=== PATIENT | female | born 1995 | race American Indian/Alaskan Native ===

== ENCOUNTER 2017-08-24 06:17 | Day surgery (SDC) | payer BC ==
[2017-08-24] MEDS ORDERED: NACL BACTERIOSTATIC INFILTRATI ONE (07:56)
--- NOTE | 2017-08-24 08:24 | Anesthesia Consultation ---
Anesthesia Consult and Med Hx Date of service: 08/24/17 - Airway Anesthetic Teeth Evaluation: Good ROM Head & Neck: Adequate Mental/Hyoid Distance: Adequate Mallampati Class: Class III Intubation Access Assessment: Good - Pulmonary Exam CTA: Yes - Cardiac Exam Cardiac Exam: RRR - Pre-Operative Health Status ASA Pre-Surgery Classification: ASA2 Proposed Anesthetic Plan: General - Pulmonary Hx Smoking: No Hx Asthma: No Hx Respiratory Symptoms: No SOB: No COPD: No Home Oxygen Therapy: No Hx Pneumonia: No Hx Sleep Apnea: No - Cardiovascular System Hx Hypertension: No Hx Coronary Artery Disease: No Hx Heart Attack/AMI: No Hx Angina: No Hx Percutaneous Transluminal Coronary Angioplasty (PTCA): No Hx Cardia Arrhythmia: No Hx Internal Defibrillator: No Hx Valvular Heart Disease: No Hx Peripheral Vascular Disease: No - Central Nervous System Hx Neuromuscular Disorder: No Hx Seizures: No CVA: No Hx Back Pain: Yes Hx Psychiatric Problems: No - Gastrointestinal Hx Ulcer: No Hx Gastroesophageal Reflux Disease: No (obesity) - Other Systems Hx Alcohol Use: No Hx Substance Use: No Hx Cancer: No
[2017-08-24] MEDS ORDERED: DILAUDID IV PRN ×2 (08:27→13:41)
[2017-08-24] MEDS ORDERED: ANCEF/STERILE WATER 2 GM/20 ML IV NR (09:00)
[2017-08-24] MEDS ORDERED: LACTATED RINGERS 1,000 ML IV SCH (09:00)
[2017-08-24] MEDS ORDERED: DIPRIVAN 10 MG/ML IV ONE (09:21)
--- NOTE | 2017-08-24 09:28 | Anesthesia Day of Surgery ---
Anesthesia Day of Surgery - Day of Surgery Patient Examined: Yes Patient H&P Reviewed: Yes Patient is NPO: Yes Beta Blockers: No Cardiac Clearance: No Pulmonary Clearance: No ([id number])
[2017-08-24] MEDS ORDERED: DILAUDID ONE ×3 (09:58→12:57)
[2017-08-24] MEDS ORDERED: NACL 0.9% IR ONE (10:38)
[2017-08-24] MEDS ORDERED: ZOFRAN ONE (11:19)
[2017-08-24] MEDS ORDERED: DECADRON ONE (11:19)
[2017-08-24] MEDS ORDERED: XYLOCAINE MPF 2% ONE (11:19)
[2017-08-24] MEDS ORDERED: NACL 0.9% 1000 ML 1,000 ML ONE (11:22)
[2017-08-24] MEDS ORDERED: VERSED ONE (12:46)
[2017-08-24] MEDS ORDERED: TORADOL ONE (13:38)
--- NOTE | 2017-08-24 13:39 | Anesthesia Day of Surgery ---
Anesthesia Day of Surgery - Day of Surgery Patient H&P Reviewed: Yes Patient is NPO: Yes Beta Blockers: Yes Cardiac Clearance: No Pulmonary Clearance: No
--- NOTE | 2017-08-24 13:40 | Post Anesthesia Evaluation ---
- Post Anesthesia Evaluation Patient Participated: Yes Airway Patent: Yes Stable Respiratory Function: Yes Nausea/Vomiting: No Temp > 96.8F: No Pain Manageable: No Adequeate Hydration: No Anesthesia Complications: No Block Receding Appropriately: Not Applicable Patient on Ventilator: No
[2017-08-24] MEDS ORDERED: ZOFRAN IV PRN (13:41)
[2017-08-24] MEDS ORDERED: TORADOL IV PRN (13:41)
--- NOTE | 2017-08-24 14:40 | Operative Report ---
SERVICE: Plastic surgery. PREOPERATIVE DIAGNOSIS: Macromastia. POSTOPERATIVE DIAGNOSIS: Macromastia. PROCEDURE: Bilateral reduction mammoplasty. SURGEON: Rob Wu MD BOWLING BALL GRADER: Toni Dalal CSA. FINDINGS: 740 gm removed from the right breast, 720 gm removed from the left breast. DESCRIPTION OF PROCEDURE: The patient was brought to the operating room and placed on the table in supine position. Following administration of general anesthesia, bilateral breasts were prepped with Betadine solution and draped in the usual sterile manner. A #10 blade scalpel was used to make a circumareolar skin incision, followed by de-epithelization of inferior dermal pedicle. Modified Garcia pattern skin markings were incised with scalpel, deepened through subcutaneous fat and breast tissue using electrocautery. Skin flaps were raised in standard manner as was fashioning of an inferior central mound pedicle. Breast tissue was resected and sent to pathology as specimen. Hemostasis controlled using electrocautery. Skin closure was performed over 10 mm SHEA drains using interrupted and running subcuticular 2-0 Monocryl sutures. Mastisol, Steri-Strips, and sterile dressings applied. The patient tolerated the procedure well and returned to recovery in stable condition. JOB# [id number] FTW/JORDEN
[2017-08-24 17:08] VITALS: BP 109/80
== END 2017-08-24 15:19 | disposition home or self-care (01) ==
LOC: OR 06:17
PROVIDERS: ATTEND Plastic Surgery
DX: N62 Hypertrophy of breast (principal); N60.32 Fibrosclerosis of left breast; N60.31 Fibrosclerosis of right breast; E66.9 Obesity, unspecified; Z68.38 Body mass index [BMI] 38.0-38.9, adult
CPT/HCPCS: 19318; 81025; 88305; J0690; J1100; J1170; J1885; J2250; J2405; J2704; J7030; J7120

== ENCOUNTER 2021-08-14 07:37 | Day surgery (SDC) | payer BC, MEDICAID ==
[~2021-08-14 07:37] MED LIST: ACETAMINOPHEN 500 MG TAB PO SCH; LACTATED RINGERS 1,000 ML IV SCH; MIDAZOLAM 2 MG/2 ML INJ IV NR; SCOPOLAMINE TRANSDERMAL PATCH 72 HR TD NR
[2021-08-14] MEDS ORDERED: ceFAZolin/Water 2 GM/20 ML 2 GM/20 ML SYRINGE IV NR (08:00)
[2021-08-14] MEDS ORDERED: BACTERIOSTATIC SODIUM CHLORIDE 0.9% 30 ML VIAL INFILTRATI ONE (08:03)
--- NOTE | 2021-08-14 08:32 | Anesthesia Day of Surgery ---
Anesthesia Day of Surgery - Day of Surgery Patient Examined: Yes Patient H&P Reviewed: Yes Patient is NPO: Yes
--- NOTE | 2021-08-14 08:32 | Anesthesia Consultation ---
Anesthesia Consult and Med Hx Date of service: 08/14/21 - Airway Anesthetic Teeth Evaluation: Good, Partials Mental/Hyoid Distance: Adequate Mallampati Class: Class II Intubation Access Assessment: Probably Good - Pre-Operative Health Status ASA Pre-Surgery Classification: ASA2 Proposed Anesthetic Plan: General - Pulmonary Hx Smoking: No Hx Asthma: No Hx Respiratory Symptoms: No SOB: No COPD: No Hx Pneumonia: No Hx Sleep Apnea: No (YOLANDE PRE SCREEN LOW RISK) - Cardiovascular System Hx Hypertension: No Hx Coronary Artery Disease: No Hx Heart Attack/AMI: No Hx Angina: No Hx Percutaneous Transluminal Coronary Angioplasty (PTCA): No Hx Cardia Arrhythmia: No Hx Internal Defibrillator: No Hx Valvular Heart Disease: No Hx Peripheral Vascular Disease: No - Central Nervous System Hx Neuromuscular Disorder: No Hx Seizures: No CVA: No Hx Back Pain: Yes Hx Psychiatric Problems: No - Gastrointestinal Hx Ulcer: No Hx Gastroesophageal Reflux Disease: No - Endocrine Hx Renal Disease: Yes (kidney stones) Hx Non-Insulin Dependent Diabetes: Yes (pre-diabetes, diet controlled) - Hematic Hx Anemia: Yes - Other Systems Hx Alcohol Use: No Hx Substance Use: No Hx Cancer: No
[2021-08-14] MEDS ORDERED: FAMOTIDINE 20 MG/2 ML INJ IV NR (08:33)
[2021-08-14] MEDS ORDERED: HYDROmorphone 1 MG/1 ML INJ ONE (08:35)
[2021-08-14] MEDS ORDERED: LIDOCAINE MPF (2%) 20 MG/1 ML VIAL 5 ML ONE (08:36)
[2021-08-14] MEDS ORDERED: propofoL 200 MG/20 ML VIAL IV ONE (08:36)
[2021-08-14] MEDS ORDERED: HYDROcodone/ACETAMINOPHEN 5-325 MG TAB PO PRN (08:46)
[2021-08-14] MEDS ORDERED: HYDROmorphone 1 MG/1 ML INJ IV PRN (09:00)
[2021-08-14] MEDS ORDERED: dexAMETHasone 20 MG/5 ML VIAL ONE (09:21)
[2021-08-14] MEDS ORDERED: ONDANSETRON 4 MG/2 ML INJ ONE (09:44)
[2021-08-14] MEDS ORDERED: KETOROLAC 30 MG/1 ML INJ ONE (09:44)
[2021-08-14] MEDS ORDERED: WATER FOR IRRIG STERILE 2000 ML IR ONE (09:53)
--- NOTE | 2021-08-14 09:58 | Short Stay Summary ---
Short Stay Documentation Date of service: 08/14/21 - History H&P: obtained from office - Allergies and Medications Current Medications: Allergies No Known Allergies Allergy (Verified 08/19/17 12:45) Home Medications Medication Instructions Recorded Confirmed Last Taken Type Ibuprofen [Motrin] 800 mg PO Q8HR PRN 08/12/21 08/12/21 08/11/21 History Ondansetron [Zofran Odt] 4 mg PO Q8HR PRN 08/12/21 08/12/21 08/11/21 History Tamsulosin [Flomax] 0.4 mg PO QDAY 08/12/21 08/12/21 08/11/21 History traMADoL [Ultram] 50 mg PO Q4HR PRN 08/12/21 08/12/21 08/11/21 History metFORMIN [Glucophage] 500 mg PO QDAY 08/14/21 08/14/21 07/31/21 History Active Medications Acetaminophen (Acetaminophen 500 Mg Tab) 1,000 mg PO PREOP MADAI Stop: 08/14/21 20:00 Last Admin: 08/14/21 08:35 Dose: 1,000 mg Hydrocodone Bitart/Acetaminophen (Hydrocodone/Acetaminophen 5-325 Mg Tab) 2 each PO ONCE PRN PRN Reason: Pain, Moderate (4-6) Stop: 08/14/21 10:00 Hydromorphone HCl (Hydromorphone 1 Mg/1 Ml Inj) 0.5 mg IV Q10MIN PRN PRN Reason: Pain , Severe (7-10) Stop: 08/14/21 20:00 Lactated Ringer's (Lactated Ringers) 1,000 mls @ 100 mls/hr IV DIRECT MADAI Stop: 08/14/21 23:59 Last Admin: 08/14/21 08:21 Dose: 100 mls/hr Cefazolin Sodium (Ancef/Sterile Water 2 Gm/20 Ml) 2 gm in 20 mls @ 80 mls/hr IV PREOP NR; Protocol Stop: 08/14/21 10:00 Midazolam HCl (Midazolam 2 Mg/2 Ml Inj) 2 mg IV PREOP NR Stop: 08/14/21 20:00 Last Admin: 08/14/21 08:42 Dose: 2 mg Scopolamine (Scopolamine Transdermal Patch 72 Hr) 1 each TD PREOP NR Stop: 08/14/21 20:00 Last Admin: 08/14/21 08:36 Dose: 1 each - Brief post op/procedure progress note Date of procedure: 08/14/21 Pre-op diagnosis: rt ureteral stone Post-op diagnosis: other (passed stone, stricture) Procedure: cysto, bilat rpg, rt ureteroscopy stent with external string Anesthesia: ZA Surgeon: MAK ROSS Condition: stable - Hospital course Hospital course: rolanddmily, post op info on chart - Disposition Condition at discharge: Stable Disposition: 01 HOME / SELF CARE / HOMELESS Short Stay Discharge Plan Follow up with: PRIMARY CARE, [Primary Care Provider] - 7 Days
--- NOTE | 2021-08-14 10:31 | Fluoroscopy Report ---
FLUOROSCOPY RETROGRADE UROGRAPHY INDICATION: RT URETRAL STONE. COMPARISON: None. IMPRESSION: 0.6 minutes of fluoroscopy time was provided by radiology during retrograde urography by the urologist. 5 fluoroscopic images are presented demonstrating right ureteral stent placement. Pl ease correlate with the procedural report as needed. Signer Name: Terry Guerrero Jr, MD Signed: 08/14/2021 10:26 AM Workstation Name: [id number]
--- NOTE | 2021-08-14 10:33 | Operative Report ---
DATE OF SURGERY: 08/14/2021 PREOPERATIVE DIAGNOSIS: Right ureteral stone, 5 mm. POSTOPERATIVE DIAGNOSIS: Right ureteral stone, 5 mm; passed stone, ureteral stricture. PROCEDURE PERFORMED: Cystoscopy, bilateral retrograde pyelograms, right ureteroscopy, double-J stent placement (6-Afghan, 22 cm with an external string). SURGEON: Luis King MD ANESTHESIA: General. ESTIMATED BLOOD LOSS: Minimal. FLUIDS: Crystalloid. COMPLICATIONS: No complications. INDICATIONS: This 25-year-old female is seen in the office due to right flank pain. A CT of abdomen and pelvis on 08/02/2021 revealed a 5 mm ureteral stone. We discussed options and the patient agreed to proceed with surgical intervention. She also has a family history of stones (her mom). Risks, benefits and complications were explained. DESCRIPTION OF PROCEDURE: The patient was taken to the operative suite, placed in a supine position. After adequate general anesthesia, placed in a dorsal lithotomy position, prepped and draped in a sterile fashion. Gutiérrez-cystourethroscopy was performed with a 22-Afghan Storz cystoscope, no acute bladder pathology. No tumors or stones. Bilateral retrograde pyelograms were obtained with an 8-Afghan Wolfe catheter and 8 mL of contrast. No filling defects or obstruction on the left. On right side, the distal ureter was a little narrow. Two 0.035 Glidewires were placed. Rigid ureteroscopy up to the renal pelvis was performed. There was a mildly narrow distal ureter. The scope could be advanced to dilate the stricture. There was some edema in small patches throughout the ureter. The stone had recently passed. A 6-Afghan, 22 cm double-J stent was left indwelling, confirmed under fluoroscopy, external string. Bladder was drained. She was extubated and taken to the recovery room. She will go home on [place], Macrobid and follow up in the office. She will also need a Litholink. TID: [id number] RECEIPT: [id number] [facility]/RADHA
--- NOTE | 2021-08-14 11:24 | Post Anesthesia Evaluation ---
- Post Anesthesia Evaluation Patient Participated: Yes Airway Patent: Yes Stable Respiratory Function: Yes Nausea/Vomiting: No Temp > 96.8F: Yes Pain Manageable: Yes Adequeate Hydration: Yes Anesthesia Complications: No
[2021-08-14 12:00] VITALS: BP 97/68
== END 2021-08-14 11:25 | disposition home or self-care (01) ==
LOC: OR 07:37
PROVIDERS: ATTEND Urology
DX: N20.1 Calculus of ureter (principal); E11.9 Type 2 diabetes mellitus without complications; D64.9 Anemia, unspecified; Z79.899 Other long term (current) drug therapy; Z87.442 Personal history of urinary calculi; Z98.890 Other specified postprocedural states
CPT/HCPCS: 52332; 52351; 74420; 81025; 82962; C1758; C1769; C2617; J0690; J1100; J1170; J1885; J2250; J2405; J2704; J3490; J7120; Q9967